=== PATIENT | male | born 1970 | race Caucasian/White ===

== ENCOUNTER 2020-05-07 08:30 | Emergency (ER) | payer BC ==
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
[2020-05-07 09:44] VITALS: BP 126/81; PULSE 88; O2SAT 98
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
== END 2020-05-07 10:02 | disposition home or self-care (01) ==
LOC: ED 08:30
DX: S80.01XA Contusion of right knee, initial encounter (principal); M25.461 Effusion, right knee; V89.0XXA Person injured in unspecified motor-vehicle accident, nontraffic, initial encounter; Y92.410 Unspecified street and highway as the place of occurrence of the external cause; Y93.89 Activity, other specified; Y99.0 Civilian activity done for income or pay
CPT/HCPCS: 73562; 99283